=== PATIENT | male | born 1990 ===

== ENCOUNTER 2024-04-27 12:43 | Outpatient (REF) | payer MEDICAID, SELFPAY ==
--- OUTSIDE RECORDS SUMMARY | 2024-04-27 12:47 | XMS_ITS | Encounter Summary ---
Author Organization [facility] Address [address] [place] [address] Care Team Providers Care Broom Handle Dipper Name Role Phone Unknown, Provider Primary Care Provider Unava ilable Encounter Details Date Type Department Care Team (Late st Contact Info) Description 03/15/2021 Transcribe Orders [facility] - Outpatient Phlebotomy Drawing [address] [place] [address] Ismael Gautam MD [address] [place] [phone] Other specified general medical examination (Primary Dx) Social History Tobacco Use Types Packs/Day Years Used Date Smoking Tobacco: Every Day Cigarettes Smokeless Tobacco: Never Alcohol Use Standard Drinks/Week Comments Yes 0 (1 standard drink = 0.6 oz pur e alcohol) Sex and Gender Information Value Date Recorded Sex Assigned at Not on file Legal Sex Male 14:51 EDT Gender Identity Not on file Sexual Orientation Not on file documented as of this encounter Plan of Treatment Not on file documented as of this encounter Procedures Procedure Name Priority Date/Time Associated Diagnosis Comments HOLD [facility] Routine 03/15/2021 9:54 EST Other specified general medical examination documented in this encounter Results * HOLD [facility] (03/15/2021 9:54 EST) Hold Hold 03/15/2021 23:15 EST [facility] Blood VENOUS BLOOD / Unknown Venipuncture / Unknown 03/15/2021 9:54 EST 03/15/2021 22:08 EST us Ismael Gautam MD LAB INFO SERVICE AND SUPPO RT & PHONE RESULT Final Result [facility] [address] [place] [address] documented in this encounter Visit Diagnoses Diagnosis Other specified general medical examination- Primary documented in this encounter Care Teams Broom Handle Dipper Relationship Specialty Start Date End Date Unknown, Provider, PCP - General 12/16/14 documented as of this encounter
--- OUTSIDE RECORDS SUMMARY | 2024-04-27 12:47 | XMS_ITS | Referral Summary ---
Author Organization [facility] Address [address] [place] [address] Care Team Providers Care Case Sealer Name Role Phone Unknown, Provider Primary Care Provider Unava ilable Allergies Active Allergy Reactions Criticality Noted Date Comments Erythromycin 12/16/2014 Medications No known medications Social History Tobacco Use Types Packs/Day Years Used Date Smoking Tobacco: Every Day Cigarettes Smokeless Tobacco: Never Alcohol Use Standard Drinks/Week Comments Yes 0 (1 standard drink = 0.6 oz pur e alcohol) Sex and Gender Information Value Date Recorded Sex Assigned at Not on file Legal Sex Male 14:51 EDT Gender Identity Not on file Sexual Orientation Not on file Last Filed Vital Signs Vital Sign Reading Time Taken Comments Blood Pressure 138/50 12/16/2014 1459 EDT Pulse 85 12/16/2014 1459 EDT Temperature 36.3 ??C (97.3 ??F) 12/16/2014 1459 EDT Respiratory Rate 16 12/16/2014 1459 EDT Oxygen Saturation 100% 12/16/2014 1459 EDT Inhaled Oxygen Concentration - - Weight 77.1 kg (170 lb) 12/16/2014 1459 EDT Height 180.3 cm (5' 10.98) 12/16/2014 1459 EDT Body Mass Index 23.72 12/16/2014 1459 EDT Plan of Treatment Not on file Procedures Procedure Name Priority Date/Time Associated Diagnosis Comments HEPATITIS C AB W REFLEX TO HCV RNA BY PCR Routine 03/15/2021 9:54 EST Opioid type dependence, continuous (HCC-CMS) from Last 3 Months or Most Recently Relevant to Health Maintenance Results * HEPATITIS C AB W REFLEX TO HCV RNA BY PCR (03/15/2021 9:54 EST) Hep C Antibody Negative Negative 03/15/2021 12:57 EST [facility] Blood VENOUS BLOOD / Unknown Venipuncture / Unknown 03/15/2021 9:54 EST 03/15/2021 11:30 EST us Ismael Gautam MD CHEMISTRY & BLOOD GAS CARIDAD OLIVO Final Result [facility] [address] [place] [address] from Last 3 Months or Most Recently Relevant to Health Maintenance Care Teams Case Sealer Relationship Specialty Start Date End Date Unknown, Provider, PCP - General 12/16/14
--- OUTSIDE RECORDS SUMMARY | 2024-04-27 12:47 | XMS_ITS | Clinical Summary ---
Author Organization [facility] Address [address] [place] [address] Care Team Providers Care District Engineer Name Role Phone Unknown, Provider Primary Care [...] on file Sexual Orientation Not on file Obstetrics History Last Filed Vital Signs Vital Sign Reading [...] 23.72 12/16/2014 1459 EDT Plan of Treatment Health Maintenance Due Date Last Done Comments Hepatitis B Vaccine (1 of 3 - 19+ 3-dose series) 10/15 COVID-19 Vaccine ( season) 2024 Hepatitis C Screen Completed 03/15/2021 Procedures Procedure Name Priority Date/Time Associated Diagnosis Comments HEPATITIS C AB W REFLEX TO HCV RNA BY PCR Routine 03/15/2021 9:54 EST Opioid type dependence, continuous (HCC-CMS) from Last 3 Months or Most Recently Relevant to Health Maintenance Results * HEPATITIS C AB W REFLEX TO HCV RNA BY PCR (03/15/2021 9:54 EST) Hep C Antibody Negative Negative 03/15/2021 12:57 EST [facility] Blood VENOUS BLOOD / Unknown Venipuncture / Unknown 03/15/2021 9:54 EST 03/15/2021 11:30 EST us Ismael Gautam MD CHEMISTRY & BLOOD GAS CARIDAD OLIVO Final Result [facility] [address] [place] [address] from Last 3 Months or Most Recently Relevant to Health Maintenance Care Teams District Engineer Relationship Specialty Start Date End Date Unknown, Provider, PCP - General 12/16/14
--- OUTSIDE RECORDS SUMMARY | 2024-04-27 12:47 | XMS_ITS ---
Author Organization Unknown Address [address] [place] [phone] Phone Care Team Providers Care Sausage Grinder Name Role Phone MARCELLE DOWD MD Attending Unavailable CARLOS ENRIQUE [place] SATELLITE TV TECHNICIAN INSTALLER ER Unavailable VERÓNICA Poole MD Primary Unavailable Results URINALYSIS WITH REFLEX CULT IF POSITIVE - Collect Date/Time: 11/15/2020 10:30 [facility] ID: [id number] - [id number] [address] [place], [place], [address] LOINC: 95647-9 Test Value Unit Reference Range Code Code System Flag COLLECTION MODE: Clean Catch Color YELLOW yellow 5778-6 LOINC Appearance CLEAR clear 5767-9 LOINC Glucose urine NEGATIVE negative mg/dl 68734-5 LOINC Bilirubin MODERATE negative 5770-3 LOINC A Ketones TRACE negative mg/dl 2514-8 LOINC A Spec gravity >=1.030 1.003 - 1.030 5811-5 LOINC pH urine 6.0 5.0 - 7.0 2756-5 LOINC Protein 100 negative mg/dl 95197-9 LOINC A Urobilinogen 0.2 <or= 1 EU/dl 87984-6 LOINC Nitrite. NEGATIVE negative 5802-4 LOINC Blood LARGE negative 5794-3 LOINC A Leukocytes. NEGATIVE negative MICROSCOPIC INDICATED WBCs. none 0-5 / hpf 04687-2 LOINC RBCs 25-100 0-5 / hpf 72959-0 LOINC Epith cells 0-5 0-5 / hpf 61735-0 LOINC Cell types squamous Crystals none none Bacteria none none Mucus present none 8247-9 LOINC Casts 0-5 none /lpf 20604-9 LOINC Cast types hyaline Other SPERM Social History Type Status Start Date End Date Code Code Syst em Smoking History Current every day smoker 929380400 SNOMED CT Sex Male Medications Medication Start Date End Date Route Frequency Dose Code Code System Medication Instructions Home Meds Promethazine HCl 25MG Oral Tablet 07/05/2021 07/13/2023 ORAL NEEDED EVERY 6 HOURS 1 TABLET 398083 RxNorm TAKE 1 TABLET ORAL NEEDED EVERY 6 HOURS Augmentin 875MG-125MG Oral Tablet 10/22/2022 10/22/2022 ORAL TWICE A DAY 1 TABLET 957814 RxNorm TAKE 1 TABLET ORAL TWICE A DAY Doxycycline 100MG Oral Capsule 10/22/2022 07/13/2023 ORAL TWICE A DAY 1 CAPSULE 6151900 RxNorm TAKE 1 CAPSULE ORAL TWICE A DAY Augmentin 875MG-125MG Oral Tablet 10/22/2022 07/13/2023 ORAL TWICE A DAY 1 TABLET 243469 RxNorm TAKE 1 TABLET ORAL TWICE A DAY MiraLAX 17GM/1Dose Oral Powder for Solution 07/13/2023 07/22/2023 ORAL DAILY 17 GRAM 413733 RxNorm TAKE 17 GRAM ORAL DAILY Hospital Discharge Instructions Should you have any questions prior to discharge, please contact a member of your healthcare team. If you have left the hospital and have any questions, please contact your primary care physician. Reason For Referral No Data Found Problems Problem Start Date Resolved Date Status Code Code System HISTORY OF KIDNEY STONE 07/05/2021 resolved 27209 5008 SNOMED-CT DRUG ABUSE 07/05/2021 resolved 93030178 SNOMED-C T Allergies and Adverse Reactions Allergy Substance Reaction Severity Start Date Concern Status Co de Code System ERYTHROMYCIN UNKNOWN (SNOMED-CT: null) Moderate Active 4053 RxNorm Plan of Treatment No Data Found Encounters Encounter Diagnosis Start Date Code Code Sys tem Unspecified renal colic 11/15/2020 SN ED-CT Personal Care Team Section Performer Name Performer Role Active Date Inactive Da te
--- OUTSIDE RECORDS SUMMARY | 2024-04-27 12:47 | XMS_ITS ---
Author Organization Unknown Address [address] [place] [phone] Phone Care Team Providers Care Senior Risk Manager Name Role Phone STEPHAN Khan MD Attending Unavailable Results CT RENAL COLIC - Completed: 11/11/2020 02:09 LOINC: Radiation optimization: All CT scans at this facility use at least one of these dose optimization techniques: automated exposure control; mA and/or kV adjustment per patient size (includes targeted exams where dose is matched to clinical indication); or iterative reconstruction. Routine noncontrast examination. Comparison is made with 01/03/19. The visualized lung bases are clear. The unenhanced visualized portions of the liver, spleen, pancreas, gallbladder, bile ducts and adrenal glands are unremarkable. There is a 1 to 2 mm calcification in the distal right ureter just proximal to the UVJ. There is mild right hydronephrosis. No nephrolithiasis is seen. The left renal collecting system is unremarkable. The urinary bladder is incompletely distended limiting evaluation. Reproductive organs are unremarkable. The bowel shows no evidence of obstruction or inflammation. There is a normal appendix present. The aorta is of normal caliber. No significant abdominal or pelvic adenopathy, ascites or pneumoperitoneum is present. No acute osseous abnormality is present. IMPRESSION:1 to 2 mm distal right ureteral calculus with mild right hydronephrosis. Dictated by: TRESA VOGEL M.D. RADIOLOGIST Transcribed by: NEYDA 11/11/20/10:21 D Wednesday, November 11, 2020 9:26:04 AM/#[id number] Electronically Reviewed and Signed By: EDIN VOGEL M.D. RADIOLOGIST 11/11/20 10:58 DISCHARGED Social History Type Status Start Date End Date Code Code Syst em Smoking History Current every day smoker [id number] SNOMED CT Sex Male Medications Medication Start Date End Date Route Frequency Dose Code Code System Medication Instructions Home Meds Promethazine HCl 25MG Oral Tablet 07/05/2021 07/13/2023 ORAL NEEDED EVERY 6 HOURS 1 TABLET 026851 RxNorm TAKE 1 TABLET ORAL NEEDED EVERY 6 HOURS Augmentin 875MG-125MG Oral Tablet 10/22/2022 10/22/2022 ORAL TWICE A DAY 1 TABLET 118256 RxNorm TAKE 1 TABLET ORAL TWICE A DAY Doxycycline 100MG Oral Capsule 10/22/2022 07/13/2023 ORAL TWICE A DAY 1 CAPSULE 2465644 RxNorm TAKE 1 CAPSULE ORAL TWICE A DAY Augmentin 875MG-125MG Oral Tablet 10/22/2022 07/13/2023 ORAL TWICE A DAY 1 TABLET 039493 RxNorm TAKE 1 TABLET ORAL TWICE A DAY MiraLAX 17GM/1Dose Oral Powder for Solution 07/13/2023 07/22/2023 ORAL DAILY 17 GRAM 878193 RxNorm TAKE 17 GRAM ORAL DAILY Hospital Discharge Instructions Should you have any questions prior to discharge, please contact a member of your healthcare team. If you have left the hospital and have any questions, please contact your primary care physician. Reason For Referral No Data Found Problems Problem Start Date Resolved Date Status Code Code System HISTORY OF KIDNEY STONE 07/05/2021 resolved 30990 5008 SNOMED-CT DRUG ABUSE 07/05/2021 resolved 44804442 SNOMED-C T Allergies and Adverse Reactions Allergy Substance Reaction Severity Start Date Concern Status Co de Code System ERYTHROMYCIN UNKNOWN (SNOMED-CT: null) Moderate Active 4053 RxNorm Plan of Treatment No Data Found Encounters Encounter Diagnosis Start Date Code Code Sys tem Unspecified renal colic 11/11/2020 SNOM ED-CT Personal Care Team Section Performer Name Performer Role Active Date Inactive Da te
--- OUTSIDE RECORDS SUMMARY | 2024-04-27 12:47 | XMS_ITS | Encounter Summary ---
Author Organization [facility] Address [address] [place] [address] Care Team Providers Care Limousine Driver Name Role Phone Unknown, Provider MD Primary Care Provider Unava ilable Reason for Visit * Reason Comments Foot Injury pt was logging and h ad a tree fall hitting his left shoulder. He fell and twisted hurding his right foot Encounter Details Date Type Department Care Team (Late st Contact Info) Description 12/16/2014 14:51 EDT - 12/16/2014 17:25 EDT Emergency [facility] - [facility] [place] [address] [place] [phone] Scooter Newberry, TANIKA [address] [place] [address] Emergency, MD Freddy Foot sprain, right, initial encounter (Primary Dx) Discharge Disposition: Home or Self Care Social History Tobacco Use Types Packs/Day Years [...] on file documented as of this encounter Last Filed Vital Signs Vital Sign Reading [...] Body Mass Index 23.72 12/16/2014 1459 EDT documented in this encounter Discharge Instructions * Discharge Instructions* Scooter Newberry PA - 12/16/2014 17:12 EDT Exam today shows swelling and bruising of the right foot, but x-rays of the ankle and foot show no broken bones. This is likely a sprain and/or bruising and should resolve over the next week. Use Acewrap and elevation, ice off and on until swelling is better. Use crutches as needed. Okay to walk, but no heavy lifting or exercise until pain-free. Use Motrin 800 mg 3 times daily for pain. Use Vicodin as well as needed. Return immediately for worsening or uncontrolled symptoms, otherwisefollowup with your PCP. documented in this encounter Discharge Disposition Disposition Code Departure Means Destination Home or Self Care Wheelchair Home documented in this encounter ED Notes * Florentin Walters RN - 12/16/2014 1717 EDT Patient has own crutches. * Scooter Newberry PA - 12/16/2014 1539 EDT DOS: 12/16/2014 Chief Complaint Patient presents with ??? Foot Injury pt was logging and had a tree fall hitting his left shoulder. He fell and twisted hurding his rightfoot HPI The patient is a 24 y.o. male who presents today with Foot Injury HPI Comments: Chief complaint of right foot pain. Patient was logging, struck by a tree on the backof the left shoulder and pushed to the ground. Twisted his right foot, resulting in swelling and bruising and pain of the right foot, inability to bear weight. He was not struck in the head, states his shoulder and the rest of his body are fine. He has some mild numbness and tingling in all of the toes. The history is provided by the patient. Foot Injury Review of Systems Review of Systems All other systems reviewed and are negative. The patient's past medical, family and social history was reviewed and updated as needed. Allergies Allergen Reactions ??? Erythromycin Vital Signs Vitals Reassessment?: Yes Temp: 36.3 ??C (97.3 ??F) Temp src: Temporal Pulse: 85 Resp: 16 SpO2: 100 % BP: 138/50 mmHg BP Device: BP Machine Patient Position: Sitting BP Cuff Location: Left arm Physical Exam Constitutional: He is oriented to person, place, and time. He appears well- developed and well-nourished. No distress. HENT: Head: Normocephalic and atraumatic. Eyes: Pupils are equal, round, and reactive to light. Cardiovascular: Normal rate and regular rhythm. Musculoskeletal: He exhibits tenderness. Right foot is mildly swollen and moderately ecchymotic across the dorsum. Very tender across the middle 3 metatarsals only, no other tenderness of the foot or ankle. Neurovascularly intact distally. Neurological: He is alert and oriented to person, place, and time. Skin: Skin is warm and dry. No rash noted. No erythema. Psychiatric: He has a normal mood and affect. His behavior is normal. Judgment and thought content normal. Vitals reviewed. RESULTS Procedures ED COURSE A medical screening exam was performed. On exam, patient has a swollen and ecchymotic right foot, with tenderness across the metatarsals. No other signs of significant injury to the head, neck, shoulders. X-ray of the foot and ankle show no broken bones. Unable to bear weight. Given Alonso wrap, instructions for conservative treatment. He has crutches in the car. ASSESSMENT AND PLAN Final diagnoses: Foot sprain, right, initial encounter DISPOSITION: Discharged The patient's pain was managed to an adequate level weighing risk vs. benefit of further medications. Upon departure from the Emergency Department, the patient's pain was 2 on a zero to ten scale. Condition at departure from the Emergency Department: Stable PCP: Doctor Unknown MDM Number of Diagnoses or Management Options Diagnosis management comments: 3 Amount and/or Complexity of Data Reviewed Tests in the radiology section of CPT??: reviewed and ordered Review and summarize past medical records: yes Fritz Rodriguez 12/16/2014 17:13 No flowsheet data found. documented in this encounter Plan of Treatment Not on file documented as of this encounter Procedures Procedure Name Priority Date/Time Associated Diagnosis Comments ANKLE 3 OR MORE VIEWS STAT 12/16/2014 16:45 EDT FOOT 3 OR MORE VIEWS STAT 12/16/2014 15:50 EDT documented in this encounter Results * ANKLE 3 OR MORE VIEWS (12/16/2014 16:45 EDT) Anatomical Region Laterality Modality Other 12/16/2014 16:4 5 EDT 12/16/2014 17:01 EDT Narrative 12/16/2014 17:01 EDT ANKLE 3 OR MORE VIEWS ??12/16/2014 4:45 PM Clinical History/Comments: Twisted, lateral ankle pain, inability to walk. Findings: ?? Findings: ?? There is no evidence of fracture, dislocation or bony deformity. ?? Lateral soft tissue swelling is seen. Procedure Note Hugo Meyers MD - 12/16/2014 ANKLE 3 OR MORE VIEWS 12/16/2014 4:45 PM Clinical History/Comments: Twisted, lateral ankle pain, inability to walk. Findings: Findings: There is no evidence of fracture, dislocation or bony deformity. Lateral soft tissue swelling is seen. Scooter Newberry PA-C [facility] ORDERA BLES Final Result * FOOT 3 OR MORE VIEWS (12/16/2014 15:50 EDT) Anatomical Region Laterality Modality Other 12/16/2014 15:5 0 EDT 12/16/2014 17:00 EDT Narrative 12/16/2014 17:00 EDT FOOT 3 OR MORE VIEWS ??12/16/2014 3:50 PM Clinical History/Comments: Twisted foot, swelling and pain, especially over middle metatarsals Technique: AP, lateral, and oblique radiographs of the right foot. Comparison: None. Findings: There is no acute fracture or malalignment. Mild soft tissue swelling is noted along the midfoot and forefoot without underlying cortical irregularity. The medial and lateral malleolus are intact. The osseous structures and joint spaces of the hindfoot, midfoot, and forefoot are preserved. The Lisfranc joint and base of the 5th metatarsal are intact. Impression: 1. No acute bony abnormality. I have personally reviewed the images and the above interpretation and agree with the findings. Procedure Note Hugo Meyers MD - 12/16/2014 FOOT 3 OR MORE VIEWS 12/16/2014 3:50 PM Clinical History/Comments: Twisted foot, swelling and pain, especially over middle metatarsals Technique: AP, lateral, and oblique radiographs of the right foot. Comparison: None. Findings: There is no acute fracture or malalignment. Mild soft tissue swelling is noted along the midfoot and forefoot without underlying cortical irregularity. The medial and lateral malleolus are intact. The osseous structures and joint spaces of the hindfoot, midfoot, and forefoot are preserved. The Lisfranc joint and base of the 5th metatarsal are intact. Impression: 1. No acute bony abnormality. I have personally reviewed the images and the above interpretation and agree with the findings. Scooter Newberry PA-C IM[facility] DIAGNOSTIC IMAG[facility] ORDERA BLES Final Result documented in this encounter Visit Diagnoses Diagnosis Foot sprain, right, initial encounter- Primary documented in this encounter Administered Medications Inactive Administered Medications - up to 3 most recent administrations Medication Order MAR Action Action Date Dose Rate Site HYDROcodone/acetaminophen 5 - 325 mg starter pack 1 Package, oral, NOW X1, 1 dose, On Estela 12/16/14 at 1730, STAT Go-Pack Dispense 12/16/2014 17:19 EDT 1 Package documented in this encounter Active and Recently Administered Medications Times are shown in EDT. Scheduled Medication Order 12/14/2014 12/15/2014 12/16/2014 HYDROcodone/acetaminophen 5 - 325 mg starter pack (COMPLETED) 1 Package, oral, NOW X1, 1 dose, On Estela 12/16/14 at 1730, STAT 1719 (Go-Pack Dispen se - Provider: Florentin Walters RN - Comment: Narcotic drug warning given to patient) documented in this encounter Orders Medications Ordered That Hakeem ht Not Have Been Administered Count Last Ordered Date First Ordered Date HYDROcodone/acetaminophen 5 - 325 mg starter pack 1 12/16/2014 Nursing Count Last Ordered Date First Orde red Date APPLY ALONSO WRAP 1 12/16/2014 documented in this encounter Care Teams Limousine Driver Relationship Specialty Start Date End Date Unknown, Provider, PCP - General 12/16/14 documented as of this encounter
--- OUTSIDE RECORDS SUMMARY | 2024-04-27 12:48 | XMS_ITS ---
Author Organization Unknown Address [address] [place] [address] [phone] Phone Care Team Providers Care Pneumatic Tube Fitter Name Role Phone PAUL PARTIDA Registered Nurse Unavailable MADAY HI Registered Nurse Unavailab sravan Kolb Attending Unavailable VERÓNICA Poole Primary Unavailable UNLISTED PROVIDER - REQUESTED Xhandoff Un available Immunization Immunization Date Status Additional Notes Code Code System Tdap 10/22/2022 Completed 115 CVX Results C REACTIVE PROTEIN HIGH SENS ITIVITY* - Collect Date/Time: 10/22/2022 05:23 [facility] ID: [id number] [address] [place] [address], [address] LOINC: 32731-0 Test Value Unit Reference Range Code Code System Flag CRP-HIGH SENS. 30.55 mg/L L=0.00 H=3.00 67566-5 LOINC H CRP-HIGH SENS 3.06 mg/dL L=0.00 H=0.30 57741-5 LOINC H CBC W/ DIFFERENTIAL* - Colle ct Date/Time: 10/22/2022 05:23 [facility] ID: [id number] [address] [place] [address], [address] LOINC: 66782-7 Test Value Unit Reference Range Code Code System Flag WBC 6.02 th/cmm L=5.00 H=10.00 6690-2 LOINC NEUT % 60.7 % L=40.0 H=80.0 LYMPH % 30.2 % L=10.0 H=50.0 MONO % 7.3 % L=2.0 H=12.0 67355-9 LOINC EOS % 1.5 % L=0.0 H=8.0 BASO % 0.3 % L=0.0 H=3.0 IG % 0.0 % L=0.0 H=1.1 2514-8 LOINC NRBC % 0.0 % L=0.0 H=0.0 22889-1 LOINC NEUT abs count 3.7 th/cmm L=1.6 H=8.4 751-8 LOINC LYMPH abs count 1.8 th/cmm L=1.5 H=4.0 731-0 LOINC MONO abs count 0.4 th/cmm L=0.2 H=1.0 742-7 LOINC EOS abs count 0.1 th/cmm L=0.0 H=0.5 711-2 LOINC BASO abs count 0.0 th/cmm L=0.0 H=0.2 704-7 LOINC IG abs count 0.0 th/cmm L=0.0 H=0.1 36854-8 LOINC NRBC abs count 0.0 mil/cmm L=0.0 H=0.0 06911-9 LOINC RBC 4.38 mil/cmm L=4.30 H=6.20 789-8 LOINC HEMOGLOBIN 12.3 gm/dL L=13.0 H=17.0 718-7 LOINC L HEMATOCRIT 38 % L=45 H=52 4544-3 LOINC L MCV 86 fL L=82 H=92 787-2 LOINC MCH 28.1 pg L=27.0 H=31.0 785-6 LOINC MCHC 32.7 % L=32.0 H=36.0 786-4 LOINC RDW-SD 40.7 fL L=39.0 H=49.0 788-0 LOINC PLATELET COUNT 185 th/cmm L=150 H=450 777-3 LOINC Social History Type Status Start Date End Date Code Code Syst em Smoking History Current every day smoker 284244640 SNOMED CT Sex Male Vital Signs Vital Sign Value Unit [place] Value [place] Unit Date/Time Recent/Initial? Code Code System Body Mass Index 24.41 kg/m2 10/22/2022 04:56 Initial 20959 -5 LOINC Systolic Blood Pressure 107 mm[Hg] 10/22/2022 07:35 Most Recent 8480- 6 LOINC Diastolic Blood Pressure 68 mm[Hg] 10/22/2022 07:35 Most Recent 8462- 4 LOINC Systolic Blood Pressure 129 mm[Hg] 10/22/2022 04:56 Initial 8480- 6 LOINC Diastolic Blood Pressure 86 mm[Hg] 10/22/2022 04:56 Initial 8462- 4 LOINC Body Surface Area 1.99 m2 10/22/2022 04:56 Initial 3140- 1 LOINC Height 180.340 0 cm 71.00 in 10/22/2022 04:56 Initial 8302- 2 LOINC O2 Saturation 96 % 2022 07:35 Most Recent 06410 -5 LOINC O2 Saturation 98 % 2022 04:56 Initial 20646 -5 LOINC Pulse 66.0 /min 10/22/2022 07:35 Most Recent 8867- 4 LOINC Pulse 80.0 /min 10/22/2022 04:56 Initial 8867- 4 LOINC Respiration 16 /min 10/23/19 07:35 Most Recent 9279- 1 LOINC Respiration 16 /min 10/23/19 04:56 Initial 9279- 1 LOINC Temperature 36.5 Ailyn 97.7 F 10/23/19 04:56 Initial 8310- 5 LOINC Weight 79.38 kg 175.00 lbs 10/22/2022 04:56 Initial 27471 -7 [facility] Medications Medication Start Date End Date Route Frequency Dose Code Code System Medication Instructions Home Meds Promethazine HCl 25MG Oral Tablet 07/05/2021 07/13/2023 ORAL NEEDED EVERY 6 HOURS 1 TABLET 098756 RxNorm TAKE 1 TABLET ORAL NEEDED EVERY 6 HOURS Augmentin 875MG-125MG Oral Tablet 10/22/2022 10/22/2022 ORAL TWICE A DAY 1 TABLET 560137 RxNorm TAKE 1 TABLET ORAL TWICE A DAY Doxycycline 100MG Oral Capsule 10/22/2022 07/13/2023 ORAL TWICE A DAY 1 CAPSULE 0872806 RxNorm TAKE 1 CAPSULE ORAL TWICE A DAY Augmentin 875MG-125MG Oral Tablet 10/22/2022 07/13/2023 ORAL TWICE A DAY 1 TABLET 898209 RxNorm TAKE 1 TABLET ORAL TWICE A DAY MiraLAX 17GM/1Dose Oral Powder for Solution 07/13/2023 07/22/2023 ORAL DAILY 17 GRAM 486511 RxNorm TAKE 17 GRAM ORAL DAILY Hospital Discharge Instructions Should you have any questions prior to discharge, please contact a member of your healthcare team. If you have left the hospital and have any questions, please contact your primary care physician. Reason For Referral No Data Found Problems Problem Start Date Resolved Date Status Code Code System HISTORY OF KIDNEY STONE 07/05/2021 resolved 82946 5008 SNOMED-CT DRUG ABUSE 07/05/2021 resolved 12282622 SNOMED-C T Allergies and Adverse Reactions Allergy Substance Reaction Severity Start Date Concern Status Co de Code System ERYTHROMYCIN UNKNOWN (SNOMED-CT: null) Moderate Active 4053 RxNorm Plan of Treatment No Data Found Encounters Encounter Diagnosis Start Date Code Code Sys tem Open wound of left hand due to bite 10/22/2022 44436 [id number] SNOMED-CT Personal Care Team Section Performer Name Performer Role Active Date Inactive Da te
--- OUTSIDE RECORDS SUMMARY | 2024-04-27 12:48 | XMS_ITS ---
Author Organization Unknown Address [address] [place] [address] [phone] Phone Care Team Providers Care Learning Coach Name Role Phone DAVIDSON BEAR Registered Nurse Unavailable MARCELLE Viera Attending Unavailable VERÓNICA Poole Primary Unavailable UNLISTED PROVIDER - REQUESTED Xhandoff Un available Immunization Immunization Date Status Additional Notes Code Code System Tdap 10/22/2022 Completed 115 CVX Results CBC W/ DIFFERENTIAL* - Colle ct Date/Time: 07/05/2021 13:48 [facility] ID: [id number] [address] [place] [address], [address] LOINC: 44062-2 Test Value Unit Reference Range Code Code System Flag WBC 10.46 th/cmm L=5.00 H=10.00 6690-2 LOINC H NEUT % 90.6 % L=40.0 H=80.0 H LYMPH % 4.6 % L=10.0 H=50.0 L MONO % 4.3 % L=2.0 H=12.0 97305-1 LOINC EOS % 0.1 % L=0.0 H=8.0 BASO % 0.2 % L=0.0 H=3.0 IG % 0.2 % L=0.0 H=1.1 2514-8 LOINC NRBC % 0.0 % L=0.0 H=0.0 37390-3 LOINC NEUT abs count 9.5 th/cmm L=1.6 H=8.4 751-8 LOINC H LYMPH abs count 0.5 th/cmm L=1.5 H=4.0 731-0 LOINC L MONO abs count 0.5 th/cmm L=0.2 H=1.0 742-7 LOINC EOS abs count 0.0 th/cmm L=0.0 H=0.5 711-2 LOINC BASO abs count 0.0 th/cmm L=0.0 H=0.2 704-7 LOINC IG abs count 0.0 th/cmm L=0.0 H=0.1 24176-0 LOINC NRBC abs count 0.0 mil/cmm L=0.0 H=0.0 73645-1 LOINC RBC 5.45 mil/cmm L=4.30 H=6.20 789-8 LOINC HEMOGLOBIN 15.5 gm/dL L=13.0 H=17.0 718-7 LOINC HEMATOCRIT 46 % L=45 H=52 4544-3 LOINC MCV 84 fL L=82 H=92 787-2 LOINC MCH 28.4 pg L=27.0 H=31.0 785-6 LOINC MCHC 34.0 % L=32.0 H=36.0 786-4 LOINC RDW-SD 40.2 fL L=39.0 H=49.0 788-0 LOINC PLATELET COUNT 210 th/cmm L=150 H=450 777-3 LOINC Vaccuol neutr 1+ BASIC METABOLIC PANEL (BMP) - Collect Date/Time: 07/05/2021 13:48 [facility] ID: [id number] [address] [place] [address], [address] LOINC: 49741-1 Test Value Unit Reference Range Code Code System Flag GLUCOSE 107 mg/dL L=70 H=116 2345-7 LOINC BUN 16 mg/dL L=6 H=25 3094-0 LOINC CREATININE 0.91 mg/dL L=0.67 H=1.17 2160-0 LOINC SODIUM SERUM 138 mmol/L L=136 H=145 2951-2 LOINC POTASSIUM SERUM 3.9 mmol/L L=3.4 H=5.2 2823-3 LOINC CHLORIDE SERUM 100 mmol/L L=96 H=110 2075-0 LOINC CARBON DIOXIDE (CO2) 27 mmol/L L=22 H=34 2028-9 LOINC ANION GAP 11.2 mmol/L 19753-1 LOINC CALCIUM SERUM 9.3 mg/dL L=8.2 H=10.2 93887-5 LOINC AGE 30 years eGFR (non-Afr.Amer.) 98 mL/min 74185-8 LOINC eGFR (Afr-Citizen Of [place]) 118 mL/min 23134-9 LOINC URINALYSIS WITH REFLEX CULT IF POSITIVE* - Collect Date/Time: 07/05/2021 13:40 [facility] ID: [id number] [address] [place], [place], [address] LOINC: 86925-5 Test Value Unit Reference Range Code Code System Flag COLLECTION MODE: CLEAN CATCH Color YELLOW yellow 5778-6 LOINC Appearance CLEAR clear 5767-9 LOINC Glucose urine NEGATIVE negative mg/dl 80010-8 LOINC Bilirubin NEGATIVE negative 5770-3 LOINC Ketones NEGATIVE negative mg/dl 2514-8 LOINC Spec gravity 1.025 1.003 - 1.030 5811-5 LOINC pH urine 5.5 5.0 - 7.0 2756-5 LOINC Protein NEGATIVE negative mg/dl 23666-7 LOINC Urobilinogen 0.2 <or= 1 EU/dl 21864-3 LOINC Nitrite. NEGATIVE negative 5802-4 LOINC Blood NEGATIVE negative 5794-3 LOINC Leukocytes. NEGATIVE negative MICROSCOPIC NOT INDICAT CT ABD + PELVIS WO CONTRAST - Completed: 07/05/2021 14:23 LOINC: Radiation optimization:?? Al l CT scans at this facility use at least one of these dose optimization techniques: automated exposure control; mA and/or kV adjustment per patient size (includes targeted exams where dose is matched to clinical indication); or iterative reconstruction. RENAL COLIC CT: Comparison is 11/11/2020. The visualized lung bases are clear. Lack of IV contrast does limit evaluation of the abdominal and pelvic organs. The unenhanced liver, spleen, pancreas, gallbladder, bile ducts, and adrenal glands are unremarkable. The kidneys, ureters, and urinary bladder are unremarkable, as are the reproductive organs. The bowel shows no evidence of obstruction or inflammation. There is a normal appendix present. No significant abdominal or pelvic adenopathy, ascites, or pneumoperitoneum. The abdominal aorta is of normal caliber. The soft tissues are unremarkable. No acute osseous abnormality is present. IMPRESSION: Unremarkable CT scan of the abdomen and pelvis. No evidence of nephrolithiasis or hydronephrosis. Findings were discussed with the emergency department on the date of the examination. Dictated by: TRESA VOGEL MD Transcribed by: DIANA 07/05/21/15:19 [id number] Electronically Reviewed and Signed By: EDIN VOGEL MD 07/06/21 12:02 Copy for: UNLISTED PROVIDER - REQUESTED Copy for: 185 HEALTH INFORMATION MGMT DISCHARGED Social History Type Status Start Date End Date Code Code Syst em Smoking History Current every day smoker 963200197 SNOMED CT Sex Male Vital Signs Vital Sign Value Unit [place] Value [place] Unit Date/Time Recent/Initial? Code Code System Body Mass Index 27.20 kg/m2 07/05/2021 13:21 Initial 67007 -5 LOINC Systolic Blood Pressure 122 mm[Hg] 07/05/2021 14:30 Most Recent 8480- 6 LOINC Diastolic Blood Pressure 90 mm[Hg] 07/05/2021 14:30 Most Recent 8462- 4 LOINC Systolic Blood Pressure 153 mm[Hg] 07/05/2021 13:21 Initial 8480- 6 LOINC Diastolic Blood Pressure 97 mm[Hg] 07/05/2021 13:21 Initial 8462- 4 LOINC Body Surface Area 2.10 m2 07/05/2021 13:21 Initial 3140- 1 LOINC Height 180.340 0 cm 71.00 in 07/05/2021 13:21 Initial 8302- 2 LOINC O2 Saturation 100 % 2021 14:30 Most Recent 61615 -5 LOINC O2 Saturation 100 % 2021 13:21 Initial 21328 -5 LOINC Pulse 82.0 /min 07/05/2021 14:30 Most Recent 8867- 4 LOINC Pulse 85.0 /min 07/05/2021 13:21 Initial 8867- 4 LOINC Respiration 16 /min 07/06/19 14:30 Most Recent 9279- 1 LOINC Respiration 16 /min 07/06/19 13:21 Initial 9279- 1 LOINC Temperature 36.1 Ailyn 97.0 F 07/06/19 14:30 Most Recent 8310- 5 LOINC Temperature 36.3 Ailyn 97.3 F 07/06/19 13:21 Initial 8310- 5 [facility] Weight 88.45 kg 195.00 lbs 07/05/2021 13:21 Initial 10908 -7 [facility] Medications Medication Start Date End Date Route Frequency Dose Code Code System Medication Instructions Home Meds Promethazine HCl 25MG Oral Tablet 07/05/2021 07/13/2023 ORAL NEEDED EVERY 6 HOURS 1 TABLET 570794 RxNorm TAKE 1 TABLET ORAL NEEDED EVERY 6 HOURS Augmentin 875MG-125MG Oral Tablet 10/22/2022 10/22/2022 ORAL TWICE A DAY 1 TABLET 827958 RxNorm TAKE 1 TABLET ORAL TWICE A DAY Doxycycline 100MG Oral Capsule 10/22/2022 07/13/2023 ORAL TWICE A DAY 1 CAPSULE 8894863 RxNorm TAKE 1 CAPSULE ORAL TWICE A DAY Augmentin 875MG-125MG Oral Tablet 10/22/2022 07/13/2023 ORAL TWICE A DAY 1 TABLET 115034 RxNorm TAKE 1 TABLET ORAL TWICE A DAY MiraLAX 17GM/1Dose Oral Powder for Solution 07/13/2023 07/22/2023 ORAL DAILY 17 GRAM 163861 RxNorm TAKE 17 GRAM ORAL DAILY Hospital Discharge Instructions Should you have any questions prior to discharge, please contact a member of your healthcare team. If you have left the hospital and have any questions, please contact your primary care physician. Reason For Referral No Data Found Problems Problem Start Date Resolved Date Status Code Code System HISTORY OF KIDNEY STONE 07/05/2021 resolved 22741 5008 SNOMED-CT DRUG ABUSE 07/05/2021 resolved 81653732 SNOMED-C T Allergies and Adverse Reactions Allergy Substance Reaction Severity Start Date Concern Status Co de Code System ERYTHROMYCIN UNKNOWN (SNOMED-CT: null) Moderate Active 4053 RxNorm Plan of Treatment No Data Found Encounters Encounter Diagnosis Start Date Code Code Sys tem Pelvic and perineal pain 07/05/2021 SNO MED-CT Personal Care Team Section Performer Name Performer Role Active Date Inactive Da te
--- OUTSIDE RECORDS SUMMARY | 2024-04-27 12:48 | XMS_ITS ---
Author Organization Unknown Address [address] [place] [address] [phone] Phone Care Team Providers Care Market Research Analyst Name Role Phone TONYA PALENCIA Registered Nurse Unavailable DIANA Poole Attending Unavailable VERÓNICA Poole Primary Unavailable UNLISTED PROVIDER - REQUESTED Xhandoff Un available Immunization Immunization Date Status Additional Notes Code Code System Tdap 10/22/2022 Completed 115 CVX Results [facility] COVID FLU RSV GENEXPE RT - Collect Date/Time: 07/22/2023 23:19 [facility] ID: [id number] [address] [place] [address], [phone] LOINC: 10977-2 Test Value Unit Reference Range Code Code System Flag COVID NEGATIVE Normal: Negative 07597-4 LOINC INFLUENZA A DNA NEGATIVE Normal: Negative 83607-3 LOINC INFLUENZA B DNA NEGATIVE Normal: Negative 46251-3 LOINC RSV DNA NEGATIVE Normal: Negative 59546-1 LOINC LIPASE* NEW - Collect Date/T gogo: 07/22/2023 22:50 [facility] ID: [id number] [address] [place] [address], [phone] LOINC: 3040-3 Test Value Unit Reference Range Code Code System Flag LIPASE. 10 U/L L=16 H=77 L COMPREHENSIVE METABOLIC PANE L (CMP) - Collect Date/Time: 07/22/2023 22:50 [facility] ID: [id number] [address] [place] [address], [address] LOINC: 47749-7 Test Value Unit Reference Range Code Code System Flag GLUCOSE 90 mg/dL L=70 H=116 2345-7 LOINC BUN 12 mg/dL L=6 H=25 3094-0 LOINC CREATININE 0.99 mg/dL L=0.67 H=1.17 2160-0 LOINC SODIUM SERUM 138 mmol/L L=136 H=145 2951-2 LOINC POTASSIUM SERUM 3.3 mmol/L L=3.4 H=5.2 2823-3 LOINC L CHLORIDE SERUM 100 mmol/L L=96 H=110 2075-0 LOINC CARBON DIOXIDE (CO2) 31 mmol/L L=22 H=34 2028-9 LOINC ANION GAP 7.5 mmol/L 60815-5 LOINC CALCIUM SERUM 9.0 mg/dL L=8.2 H=10.2 06046-9 LOINC BILIRUBIN TOTAL 0.4 mg/dL L=0.0 H=1.3 1975-2 LOINC ALK. PHOS. 65 U/L L=46 H=116 6768-6 LOINC SGOT (AST) 40 U/L L=15 H=37 1920-8 LOINC H SGPT (ALT) 89 U/L L=12 H=78 1742-6 LOINC H TOTAL PROTEIN 8.5 gm/dL L=6.0 H=8.0 2885-2 LOINC H ALBUMIN 4.0 gm/dL L=3.4 H=5.0 1751-7 LOINC AGE 32 years eGFR (non-Afr.Amer.) 88 mL/min 68034-9 LOINC eGFR (Afr-[place]ian) 106 mL/min 69554-5 LOINC CBC W/ DIFFERENTIAL* - Colle ct Date/Time: 07/22/2023 22:50 [facility] ID: [id number] [address] [place], [place], 56 LOINC: 97319-2 Test Value Unit Reference Range Code Code System Flag WBC 12.08 th/cmm L=5.00 H=10.00 6690-2 LOINC H NEUT % 73.1 % L=40.0 H=80.0 LYMPH % 16.9 % L=10.0 H=50.0 MONO % 8.5 % L=2.0 H=12.0 20596-2 LOINC EOS % 1.0 % L=0.0 H=8.0 BASO % 0.2 % L=0.0 H=3.0 IG % 0.3 % L=0.0 H=1.1 2514-8 LOINC NRBC % 0.0 % L=0.0 H=0.0 21467-1 LOINC NEUT abs count 8.8 th/cmm L=1.6 H=8.4 751-8 LOINC H LYMPH abs count 2.0 th/cmm L=1.5 H=4.0 731-0 LOINC MONO abs count 1.0 th/cmm L=0.2 H=1.0 742-7 LOINC EOS abs count 0.1 th/cmm L=0.0 H=0.5 711-2 LOINC BASO abs count 0.0 th/cmm L=0.0 H=0.2 704-7 LOINC IG abs count 0.0 th/cmm L=0.0 H=0.1 40422-7 LOINC NRBC abs count 0.0 mil/cmm L=0.0 H=0.0 03204-1 LOINC RBC 4.82 mil/cmm L=4.30 H=6.20 789-8 LOINC HEMOGLOBIN 13.5 gm/dL L=13.0 H=17.0 718-7 LOINC HEMATOCRIT 55 % L=45 H=52 4544-3 LOINC H MCV 114 fL L=82 H=92 787-2 LOINC H MCH 28.0 pg L=27.0 H=31.0 785-6 LOINC MCHC 24.5 % L=32.0 H=36.0 786-4 LOINC L RDW-SD 59.7 fL L=39.0 H=49.0 788-0 LOINC H PLATELET COUNT 218 th/cmm L=150 H=450 777-3 LOINC Anisocytosis 1+ Acanthocytes 1+ Ovalocytes 1+ Hypochromia 1+ Social History Type Status Start Date End Date Code Code Syst em Smoking History Current every day smoker 845720111 SNOMED CT Sex Male Vital Signs Vital Sign Value Unit [place] Value [place] Unit Date/Time Recent/Initial? Code Code System Body Mass Index 23.71 kg/m2 07/22/2023 22:42 Initial 99891 -5 LOINC Systolic Blood Pressure 130 mm[Hg] 07/22/2023 23:45 Most Recent 8480- 6 LOINC Diastolic Blood Pressure 78 mm[Hg] 07/22/2023 23:45 Most Recent 8462- 4 LOINC Systolic Blood Pressure 119 mm[Hg] 07/22/2023 22:42 Initial 8480- 6 LOINC Diastolic Blood Pressure 82 mm[Hg] 07/22/2023 22:42 Initial 8462- 4 LOINC Body Surface Area 1.97 m2 07/22/2023 22:42 Initial 3140- 1 LOINC Height 180.340 0 cm 71.00 in 07/22/2023 22:42 Initial 8302- 2 INC O2 Saturation 96 % 2023 23:45 Most Recent 36039 -5 INC O2 Saturation 98 % 2023 22:42 Initial 33088 -5 INC Pulse 82.0 /min 07/22/2023 23:45 Most Recent 8867- 4 INC Pulse 84.0 /min 07/22/2023 22:42 Initial 8867- 4 LOINC Respiration 16 /min 07/22/19 24 22:42 Initial 9279- 1 INC Temperature 36.6 Ailyn 97.9 F 07/22/19 23:45 Most Recent 8310- 5 INC Temperature 36.2 Ailyn 97.2 F 07/22/19 22:42 Initial 8310- 5 INC Weight 77.11 kg 170.00 lbs 07/22/2023 22:42 Initial 33621 -7 [facility] Medications Medication Start Date End Date Route Frequency Dose Code Code System Medication Instructions Home Meds MiraLAX 17GM/1Dose Oral Powder for Solution 07/13/2023 07/22/2023 ORAL DAILY 17 GRAM 271230 RxNorm TAKE 17 G ROYCE ORAL DAILY Hospital Discharge Instructions Should you have any questions prior to discharge, please contact a member of your healthcare team. If you have left the hospital and have any questions, please contact your primary care physician. 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
--- OUTSIDE RECORDS SUMMARY | 2024-04-27 12:48 | XMS_ITS ---
Author Organization Unknown Address [address] [place] [address] [phone] Phone Care Team Providers Care Field Applications Specialist Name Role Phone JOLENE DING Registered Nurse Unavailable ADRIANA Poole Attending Unavailable VERÓNICA Poole Primary Unavailable UNLISTED PROVIDER - REQUESTED Xhandoff Un available Immunization Immunization Date Status Additional Notes Code Code System Tdap 10/22/2022 Completed 115 CVX Social History Type Status Start Date End Date Code Code Syst em Smoking History Current every day smoker 676004361 SNOMED CT Sex Male Vital Signs Vital Sign Value Unit Love Value Love Unit Date/Time Recent/Initial? Code Code System Body Mass Index 23.01 kg/m2 07/13/2023 19:17 Initial 69759 -5 [facility] Systolic Blood Pressure 141 mm[Hg] 07/13/2023 19:17 Initial 8480- 6 LOINC Diastolic Blood Pressure 79 mm[Hg] 07/13/2023 19:17 Initial 8462- 4 [facility] Body Surface Area 1.94 m2 07/13/2023 19:17 Initial 3140- 1 INC Height 180.340 0 cm 71.00 in 07/13/2023 19:17 Initial 8302- 2 INC O2 Saturation 99 % 2023 19:17 Initial 27847 -5 [facility] Pulse 63.0 /min 07/13/2023 19:17 Initial 8867- 4 [facility] Respiration 18 /min 07/13/19 19:17 Initial 9279- 1 INC Temperature 37.0 Ailyn 98.6 F 07/13/19 19:17 Initial 8310- 5 LOINC Weight 74.84 kg 165.00 lbs 07/13/2023 19:17 Initial 37584 -7 [facility] Medications Medication Start Date End Date Route Frequency Dose Code Code System Medication Instructions Home Meds Promethazine HCl 25MG Oral Tablet 07/05/2021 07/13/2023 ORAL NEEDED EVERY 6 HOURS 1 TABLET 937409 RxNorm TAKE 1 TABLET ORAL NEEDED EVERY 6 HOURS Doxycycline 100MG Oral Capsule 10/22/2022 07/13/2023 ORAL TWICE A DAY 1 CAPSULE 6757889 RxNorm TAKE 1 CAPSULE ORAL TWICE A DAY Augmentin 875MG-125MG Oral Tablet 10/22/2022 07/13/2023 ORAL TWICE A DAY 1 TABLET 470499 RxNorm TAKE 1 TABLET ORAL TWICE A DAY MiraLAX 17GM/1Dose Oral Powder for Solution 07/13/2023 07/22/2023 ORAL DAILY 17 GRAM 298405 RxNorm TAKE 17 GRAM ORAL DAILY Hospital Discharge Instructions Should you have any questions prior to discharge, please contact a member of your healthcare team. If you have left the hospital and have any questions, please contact your primary care physician. Reason For Referral No Data Found Problems Problem Start Date Resolved Date Status Code Code System HISTORY OF KIDNEY STONE 07/05/2021 resolved 95429 5008 SNOMED-CT DRUG ABUSE 07/05/2021 resolved 47187899 SNOMED-C T Allergies and Adverse Reactions Allergy Substance Reaction Severity Start Date Concern Status Co de Code System ERYTHROMYCIN UNKNOWN (SNOMED-CT: null) Moderate Active 4053 RxNorm Plan of Treatment No Data Found Encounters Encounter Diagnosis Start Date Code Code Sys tem Constipation 07/13/2023 26208203 SNOMED-CT Personal Care Team Section Performer Name Performer Role Active Date Inactive Zeeshan joe
[2024-04-27 15:04] LABS: ALT 10 U/L (16-63); AST 8 U/L (15-37); Albumin 4.2 g/dL (3.4-5.0); Alkaline Phosphatase 63 U/L (46-116); Anion Gap 8.5 mmol/L (3-11); BUN 14 mg/dL (7-18); Bilirubin, Total 0.34 mg/dL (0.2-1.0); CO2 30.5 mmol/L (21.0-32.0); CREATININE 0.9 mg/dL (0.70-1.30); Calcium 9.1 mg/dL (8.5-10.1); Chloride 107 mmol/L (98-107); Estimated GFR 115.65 (mL/min/1.73m2); Glucose 106 mg/dL (74-106); Potassium 4.3 mmol/L (3.5-5.1); Sodium 146 mmol/L (136-145); Total Protein 7.5 g/dL (6.4-8.2)
[2024-04-28 12:40] LABS: HIV-1/2 Ag & Ab Screen Negative (Negative); Hepatitis C Ab w Rflx HCV PCR Negative (Negative)
[2024-04-28 13:07] LABS: HBs Antibody, Quant 119.3 mIU/mL (See Note); Hepatitis B Surface Ab Positive (See Note)
[2024-04-28 13:20] LABS: Hepatitis B Surface Ag Negative (Negative)
== END 2024-04-27 12:44 | disposition home or self-care (01) ==
LOC: NCHCN 12:43
PROVIDERS: Visit Provider Family Medicine
DX: F19.11 Other psychoactive substance abuse, in remission (principal)
CPT/HCPCS: 80053; 86706; 86803; 87340; 87389